=== PATIENT | female | born 1960 | race Two or more races ===

== ENCOUNTER 2016-09-13 09:49 | Emergency (ER) | payer MEDICARE, OTHER ==
[~2016-09-13] VITALS: Ht 165.1 cm; Wt 59.0 kg
[~2016-09-13 09:49] MED LIST: UNOBMED
[2016-09-13 09:55] VITALS: BP 108/72
--- NOTE | 2016-09-13 10:39 | Emergency Room Report ---
History of Present Illness General Chief Complaint: General Complaint Source: Medical Record Present Illness HPI Patient has a history of Crohn's disease and stays at a [facility]pc. Patient has a colostomy. Patient presents emergency department today requesting examination of a colostomy and colostomy bags. Patient denies any fever chest pain shortness of breath.Patient denies any fever nausea vomiting diarrhea chills. Patient states that she is hungry and wants some food. Patient ate a sandwich here. No other complaints are noted.No other modifying factors. No other associated signs and symptoms. No other complaints were noted. Allergies: Coded Allergies: PENICILLINS (Unverified Allergy, Unknown, 09/13/16) SULFA (SULFONAMIDE ANTIBIOTICS) (Unverified Allergy, Unknown, 09/13/16) Patient History Past Medical History: other - Crohn's disease PSxH Narrative colostomy Social History: Denies: alcohol use, drug use, smoking Social History Narrative stays at a fpc Reviewed Nursing Documentation: PMH: Agreed, PSxH: Agreed Nursing Documentation-PMH Hx Gastrointestinal Problems: Yes - Colostomy, Charlie'jewels Mccormick, Anemia, Liver Ds., Hx Seizures: Yes - Hep B Review of Systems All Other Systems: negative except mentioned in HPI Physical Exam Vital Signs Date Time Temp Pulse Resp B/P Pulse Ox O2 Delivery O2 Flow Rate FiO2 09/13/16 09:43 97.9 76 16 108/72 100 Room Air Sp02 EP Interpretation: reviewed, normal General Appearance: normal inspection, well appearing, no apparent distress, alert Head: atraumatic Eyes: bilateral eye normal inspection ENT: normal ENT inspection, hearing grossly normal, normal voice Neck: normal inspection, full range of motion, supple, no bony tend Respiratory: normal inspection, lungs clear, normal breath sounds, no respiratory distress, no retraction, no wheezing Cardiovascular #1: regular rate, rhythm, no edema Gastrointestinal: normal inspection, normal bowel sounds, non tender, soft, no guarding, no hernia, other - colostomy on the right side Genitourinary: no CVA tenderness Musculoskeletal: normal inspection, back normal, normal range of motion Neurologic: normal inspection, alert, responsive, speech normal Psychiatric: normal inspection, judgement/insight normal, mood/affect normal Skin: normal inspection, normal color, no rash Medical Decision Making Diagnostic Impression: Primary Impression: Colostomy care ER Course Patient presents emergency department today for evaluation. Evaluation of patient's abdomen shows a contact colostomy. Patient is tolerating food. Patient was given food. Patient was given a instructions on colostomy care and colostomy bag. Patient was discharged back to her f[facility].Patient is advised to follow up with primary doctor in 2-3 days and return the emergency room for any worsening symptoms and as needed. Last Vital Signs Date Time Temp Pulse Resp B/P Pulse Ox O2 Delivery O2 Flow Rate FiO2 09/13/16 09:55 97.9 16 108/72 100 Room Air 09/13/16 09:43 76 Status: improved Disposition: HOME, SELF-CARE Condition: Stable Referrals: NOT CHOSEN [facility]/,REFERRING (PCP) Patient Instructions: Colostomy Home Guide SUSHILA YOUNGBLOOD M.D. Sep 13, 2016 10:39
[2016-09-13 10:47] VITALS: BP 108/72
== END 2016-09-13 10:55 | disposition home or self-care (01) ==
LOC: EDBD 09:49 → EMR 10:11
DX: Z43.3 Encounter for attention to colostomy (principal); K50.90 Crohn's disease, unspecified, without complications; D64.9 Anemia, unspecified; K76.9 Liver disease, unspecified; Z88.2 Allergy status to sulfonamides; Z88.0 Allergy status to penicillin; B19.10 Unspecified viral hepatitis B without hepatic coma
CPT/HCPCS: 99282

== ENCOUNTER 2016-11-11 21:25 | Emergency (ER) | payer MEDICARE, OTHER ==
[~2016-11-11] VITALS: Ht 162.6 cm; Wt 59.0 kg
[2016-11-11 22:00] VITALS: BP 110/70
[2016-11-12 02:27] VITALS: BP 106/68
--- NOTE | 2016-11-12 03:41 | Emergency Room Report ---
History of Present Illness General Chief Complaint: General Complaint Source: Patient Present Illness HPI Patient 56-year-old female who presented after increased generalized weakness. Patient prior history of Crohn's disease. Patient had been reportedly drinking alcohol earlier in the day per EMS. The patient prior history of colostomy use. She had not been having fever. Allergies: Coded Allergies: PENICILLINS (Unverified Allergy, Unknown, 09/13/16) SULFA (SULFONAMIDE ANTIBIOTICS) (Unverified Allergy, Unknown, 09/13/16) Patient History Past Medical History: see triage record, other - crohn's disease Now: No Reviewed Nursing Documentation: PMH: Agreed, PSxH: Agreed Nursing Documentation-PMH Hx Gastrointestinal Problems: Yes - Colostomy, Chron's DrPraneeth, Anemia, Liver Ds., Hx Seizures: Yes - Hep B Review of Systems All Other Systems: limited - by poor cooperation Physical Exam Vital Signs Date Time Temp Pulse Resp B/P Pulse Ox O2 Delivery O2 Flow Rate FiO2 11/11/16 21:36 97.5 78 16 110/70 98 Room Air Sp02 EP Interpretation: reviewed, normal General Appearance: normal inspection, well appearing, no apparent distress, alert, GCS 15, thin, Chronically Ill Head: atraumatic ENT: normal ENT inspection, hearing grossly normal, normal voice Neck: normal inspection, full range of motion, supple, no bony tend Respiratory: normal inspection, lungs clear, normal breath sounds, no respiratory distress, no retraction, no wheezing Cardiovascular #1: regular rate, rhythm, no edema Gastrointestinal: normal inspection, soft, no guarding, no hernia, other - colostomy Genitourinary: no CVA tenderness Musculoskeletal: normal inspection, back normal, normal range of motion Neurologic: normal inspection, alert, oriented x3, responsive, lane attendant III-XII nml as tested, speech normal Psychiatric: normal inspection, judgement/insight normal, mood/affect normal Skin: normal inspection, normal color, no rash Medical Decision Making Diagnostic Impression: Primary Impression: Alcohol abuse Additional Impression: Colostomy care ER Course Patient presented for generalized weakness. Differential diagnosis included was not limited to anemia, urinary tract infection, electrolyte abnormality, hypothyroidism, myocardial infarction, myasthenia gravis, dehydration, among others. Patient's benign exam and does not appear to require any further imaging or laboratory testing at this time. The patient presented and appears to be intoxicated with alcohol. The patient was observed in the emergency department and gradual improvement in mental status.The patient is advised to follow up with primary care doctor in 1-2 days. Patient is advised to return if any worsening condition or if any changes in status that are concerning. Last Vital Signs Date Time Temp Pulse Resp B/P Pulse Ox O2 Delivery O2 Flow Rate FiO2 11/12/16 02:27 98.0 76 14 106/68 97 Room Air Status: improved Disposition: HOME, SELF-CARE Condition: Stable Referrals: NOT CHOSEN JEFF/,REFERRING (PCP) Gustabo Arevalo Nov 12, 2016 03:41
[2016-11-12 07:18] VITALS: BP 105/65
[2016-11-12 07:34] VITALS: BP 105/65
== END 2016-11-12 07:36 | disposition home or self-care (01) ==
LOC: EDBD 21:25 → EDUNIT# 21:25 → EMR 22:09
DX: F10.10 Alcohol abuse, uncomplicated (principal); Z43.3 Encounter for attention to colostomy; K50.90 Crohn's disease, unspecified, without complications; Z88.0 Allergy status to penicillin; Z88.2 Allergy status to sulfonamides; Z86.19 Personal history of other infectious and parasitic diseases
CPT/HCPCS: 99284

== ENCOUNTER 2017-01-11 22:50 | Emergency (ER) | payer MEDICARE, OTHER ==
[~2017-01-11] VITALS: Ht 170.2 cm; Wt 63.5 kg
[2017-01-11 22:53] VITALS: BP 108/79
[2017-01-12 01:13] VITALS: BP 99/66
--- NOTE | 2017-01-12 02:02 | Emergency Room Report ---
History of Present Illness General Chief Complaint: Altered Level of Consciousness Source: Patient, Medical Record, EMS Present Illness HPI Is a 56-year-old female well-known to EMS and his ER. She has a history of colostomy and also history of alcohol abuse. She was brought in for alcohol intoxication. She was outside liquor store intoxicated. No trauma. Denies any complaint other complaint. No nausea no vomiting. No abdominal pain. No diarrhea. Allergies: Coded Allergies: PENICILLINS (Unverified Allergy, Unknown, 09/13/16) SULFA (SULFONAMIDE ANTIBIOTICS) (Unverified Allergy, Unknown, 09/13/16) Patient History Past Medical History: see triage record, old chart reviewed Past Surgical History: other Pertinent Family History: none Social History: Reports: alcohol use Last Menstrual Period: NA Now: No Immunizations: other Reviewed Nursing Documentation: PMH: Agreed, PSxH: Agreed Nursing Documentation-PMH Hx Gastrointestinal Problems: Yes - Colostomy, Charlie'jewels Mccormick, Anemia, Liver Ds., Hx Seizures: Yes - Hep B Review of Systems Eye: Denies: eye pain, blurred vision ENT: Denies: ear pain, nose congestion, throat swelling Respiratory: Denies: cough, shortness of breath Cardiovascular: Denies: chest pain, palpitations Gastrointestinal: Denies: abdominal pain, diarrhea, nausea, vomiting Musculoskeletal: Denies: back pain, joint pain Skin: Denies: rash Neurological: Denies: headache, numbness Endocrine: Denies: increased thirst, increased urine Hematologic/Lymphatic: Denies: easy bruising All Other Systems: negative except mentioned in HPI Physical Exam Vital Signs Date Time Temp Pulse Resp B/P (MAP) Pulse Ox O2 Delivery O2 Flow Rate FiO2 01/11/17 22:43 97.0 88 18 108/79 98 Room Air vitals normal Sp02 EP Interpretation: reviewed, normal General Appearance: well appearing, no apparent distress, alert, other - Intoxicated Head: normocephalic, atraumatic Eyes: bilateral eye PERRL, bilateral eye EOMI ENT: hearing grossly normal, normal pharynx Neck: full range of motion, supple, no meningismus Respiratory: chest non-tender, lungs clear, normal breath sounds Cardiovascular #1: regular rate, rhythm, no murmur Gastrointestinal: normal bowel sounds, non tender, no mass, no organomegaly, no bruit, non-distended, other - Colostomy bag intact Musculoskeletal: back normal, gait/station normal, normal range of motion Psychiatric: mood/affect normal Skin: warm/dry Medical Decision Making Diagnostic Impression: Primary Impression: Alcohol intoxication Qualified Codes: F10.920 - Alcohol use, unspecified with intoxication, uncomplicated ER Course Patient presents with alcohol intoxication. No complication. No trauma. We' ll discharge home she is more clinically sober. She doesn't want any social service or half-way placement. Last Vital Signs Date Time Temp Pulse Resp B/P (MAP) Pulse Ox O2 Delivery O2 Flow Rate FiO2 01/12/17 01:13 98.0 72 14 99/66 98 Room Air Status: improved Disposition: HOME, SELF-CARE Condition: Stable Referrals: NOT CHOSEN [facility]/MD,REFERRING (PCP) Additional Instructions: Abstain from alcohol. Followup with your DrPraneeth in 7 days. Return if worse. ASHLEIGH DAVIS M.D. Jan 12, 2017 02:02
[2017-01-12 03:35] VITALS: BP 93/63
[2017-01-12 06:14] VITALS: BP 93/63
== END 2017-01-12 06:20 | disposition home or self-care (01) ==
LOC: EDBD 22:50 → EMR 23:30
DX: F10.129 Alcohol abuse with intoxication, unspecified (principal); K50.90 Crohn's disease, unspecified, without complications; D64.9 Anemia, unspecified; K76.9 Liver disease, unspecified; Z93.3 Colostomy status
CPT/HCPCS: 99283

== ENCOUNTER 2017-01-12 13:25 | Emergency (ER) | payer MEDICARE, OTHER ==
[~2017-01-12] VITALS: Ht 160 cm; Wt 52.2 kg
[2017-01-12 13:26] VITALS: BP 118/74
[2017-01-12] MEDS ORDERED: Naloxone 1mg/ml 2ml IM ONE (14:45)
--- NOTE | 2017-01-12 16:43 | Diagnostic Imaging Report ---
Indications: Altered mental status Technique: Spiral acquisitions obtained through the brain. Angled axial and coronal 5 x 5 mm slices were reconstructed. Total dose length product 1522 mGycm. CTDI vol(s) 70 mGy. Dose reduction achieved using automated exposure control Comparison: None Findings: There is age-related enlargement of ventricles and extra axial CSF spaces. There is mild periventricular the white matter chronic ischemic change. Tiny old lacunar infarct is seen in the genuine left internal capsule. Otherwise normal sahu-white differentiation. No acute hemorrhage or edema. No mass effect nor midline shift. Intact calvarium. Visualized orbits are unremarkable. There is bilateral maxillary sinus disease, left greater than right. There is also ethmoid sphenoid sinus disease. The mastoids are clear. Impression: Chronic and age-related changes, as described Negative for acute intracranial bleed or mass effect The CT scanner at [facility] is accredited by the [employer] and the scans are performed using protocols designed to limit radiation exposure to as low as reasonably achievable to attain images of sufficient resolution adequate for diagnostic evaluation.
--- NOTE | 2017-01-12 19:00 | Emergency Room Report ---
History of Present Illness General Chief Complaint: Alcohol Intoxication Source: Patient Present Illness HPI 56-year-old female presents to the emergency department for acute alcohol intoxication. Patient was brought in by ambulance found on the sidewalk. Patient denies complaint other than being hungry at this time. Patient is poorly cooperative and sleeping intermittently. Patient denies trauma or fall. She denies neck or back pain. Allergies: Coded Allergies: PENICILLINS (Unverified Allergy, Unknown, 09/13/16) SULFA (SULFONAMIDE ANTIBIOTICS) (Unverified Allergy, Unknown, 09/13/16) Patient History Past Medical History: see triage record Past Surgical History: none Pertinent Family History: none Social History: Reports: alcohol use Now: No Nursing Documentation-PM Past Medical History: No Stated History Hx Gastrointestinal Problems: Yes - Colostomy, Charlie'jewels Mccormick, Anemia, Liver Ds., Hx Seizures: Yes - Hep B Review of Systems All Other Systems: limited Physical Exam Vital Signs Date Time Temp Pulse Resp B/P (MAP) Pulse Ox O2 Delivery O2 Flow Rate FiO2 01/12/17 13:22 97.7 87 18 103/70 100 Room Air Sp02 EP Interpretation: reviewed, normal General Appearance: no apparent distress, alert, GCS 15, non-toxic Head: normocephalic, atraumatic Eyes: bilateral eye normal inspection, bilateral eye PERRL, bilateral eye other - pt. had bilateral pinpoint pupils on secondary exam, and is increasingly sleepy ENT: hearing grossly normal, no angioedema, normal voice, TMs + canals normal, moist mucus membranes Neck: full range of motion, supple/symm/no masses Respiratory: chest non-tender, lungs clear, normal breath sounds, speaking full sentences Cardiovascular #1: regular rate, rhythm Gastrointestinal: normal bowel sounds, non tender, soft, no guarding, no rebound Rectal: deferred Genitourinary: normal inspection, no CVA tenderness Musculoskeletal: back normal, gait/station normal, normal range of motion, non- tender Neurologic: alert, oriented x3, responsive, motor strength/tone normal, sensory intact, speech normal - slurred speech, other - negative calvo's sign Psychiatric: judgement/insight normal, memory normal, mood/affect normal Skin: normal color, no rash, warm/dry, well hydrated Medical Decision Making PA Attestation Dr. wilson is my supervising Physician whom patient management has been discussed with. Diagnostic Impression: Primary Impression: Acute alcoholic intoxication Qualified Codes: F10.929 - Alcohol use, unspecified with intoxication, unspecified ER Course Pt. presents to the ED intoxicated with alcohol, pt. is NAD, pt. is arousable with slurred speech, no obvious signs of trauma, able to sit in gurney. Ddx considered but are not limited to ETOH, Trauma, Syncope, dementia, OD Vital signs: are WNL, pt. is afebrile H&PE are most consistent with ETOH abuse. Pt. does have very pinpoint pupils. ORDERS: -CT HEAD:No evidence of acute fracture, hemorrhage, or intracranial process Per : Official Radiology report. -Serum ETOH: 169 ED INTERVENTIONS: -Narcan 2mg - Observance while she detoxifies. Pt. was allowed to sleep/rest. PT. became awake and alert x 3 - Pt. requests to leave after several hours of resting. DISCHARGE: At this time pt. is stable for d/c to home. Will provide printed patient care instructions, and any necessary prescriptions. Care plan and follow up instructions have been discussed with the patient prior to discharge. Labs Test 01/12/17 16:39 Serum Alcohol 169 mg/dL Last Vital Signs Date Time Temp Pulse Resp B/P (MAP) Pulse Ox O2 Delivery O2 Flow Rate FiO2 01/12/17 13:26 97.9 88 18 118/74 100 Room Air Disposition: HOME, SELF-CARE Condition: Stable Referrals: NOT CHOSEN [facility]/MD,REFERRING (PCP) Patient Instructions: Alcohol Intoxication, [id number] Additional Instructions: Take medications as directed. Follow up with a Primary Care Provider in 3-5 days, even if your symptoms have resolved. --Please review list of primary care clinics, if you do not already have a primary care provider Return sooner to ED if new symptoms occur, or current symptoms become worse. Do not drink alcohol - Please note that this Emergency Department Report was dictated using [employer] contour wire specialist technology software, occasionally this can lead to erroneous entry secondary to interpretation by the dictation equipment. Viki Denis Jan 12, 2017 18:59
[2017-01-12 19:15] VITALS: BP 144/78
== END 2017-01-12 19:15 | disposition home or self-care (01) ==
LOC: EDBD 13:25 → EMR 13:49
DX: F10.929 Alcohol use, unspecified with intoxication, unspecified (principal); Z88.2 Allergy status to sulfonamides; Z88.0 Allergy status to penicillin; B19.10 Unspecified viral hepatitis B without hepatic coma; Z93.3 Colostomy status
CPT/HCPCS: 36415; 70450; 96372; 99284; G0480; J2310; 80329